=== PATIENT | female | born 1995 | race Caucasian/White ===

== ENCOUNTER 2019-08-30 19:16 | Emergency (ER) | payer OTHER, SELFPAY ==
--- NOTE | ~2019-08-30 | CT_ITS ---
EXAMINATION: CT abdomen pelvis w con EXAM DATE: 08/30/2019 23:10 INDICATION: Upper abdominal pain and vomiting. TECHNIQUE: Spiral CT of the abdomen and pelvis was performed following intravenous injection of 100 m L Omnipaque 350. Axial, coronal and sagittal images were reviewed. The dose-length product (DLP) fo r this examination was 531.42 mGy-cm. The exposure was tailored according to patient size (auto mA e xposure control), and iterative reconstruction (ASIR) was used as additional dose reduction technique . There is no prior study for comparison. FINDINGS: The liver, spleen, adrenal glands and pancreas are unremarkable. There are cholecystectomy clips. Portal and splenic veins are patent. Kidneys enhance symmetrically. There is no hydronephr osis. The uterus and ovaries are unremarkable, no adnexal mass. The bladder is unremarkable. Ther e is no retroperitoneal or pelvic lymphadenopathy. Possible identification of an unremarkable appendix. No pericecal inflammation. The stomach and smal l bowel are unremarkable. There is expected amount of colonic stool. No free intraperitoneal gas. The heart is normal in size. There are no pericardial or pleural effusions. The lung bases are un remarkable. There are no osteoblastic or osteolytic lesions identified. IMPRESSION: 1. No acute intra-abdominal findings. Reviewed, dictated and finalized at location A.
[2019-08-30 19:24] VITALS: BP 110/73; PULSE 84; RESP 18; TEMP 36.6; O2SAT 99
--- NOTE | 2019-08-30 20:00 | PC.NURSE ---
This nurse walked into room 3 to start an IV and draw labs to have ready for when Dr. Norris ordered them and witnessed pt sticking her finger down her throat to make herself vomit. There was yellow vomit on the floor, on the patient and on the chair beside the patient. This nurse cleaned floor prior to starting IV for patient.
--- NOTE | 2019-08-30 20:10 | PC.NURSE ---
Pt given urine cup and wipe and instructed on how to obtain a urine sample. Pt stated she would try to give one and ambulatory to washroom.
--- NOTE | 2019-08-30 20:20 | PC.NURSE ---
Pt ambulatory to washroom, unable to urinate at this time
[2019-08-30] MEDS: ONDANSETRON INJ 4 MG/2 ML VIAL 8 MG IV PUSH (21:14)
[2019-08-30] MEDS: LACTATED RINGERS 1,000 ML 999 ML IV CONT (21:14)
--- NOTE | 2019-08-30 21:15 | PC.NURSE ---
Pt ambulatory to the washroom, unable to urinate at this time
--- NOTE | 2019-08-30 21:16 | ED.NAVMDI ---
HPI - Nausea/Vomiting/Diarrhea General Chief complaint: Nausea/Vomiting/Diarrhea Stated complaint: allergic to weed Time Seen by Provider: 08/30/19 20:29 Source: patient Mode of arrival: ambulatory Limitations: no limitations History of Present Illness HPI Narrative: This patient is a 24 year old female who presents with complaints of epigastric abdominal pain with nausea, vomiting and diarrhea. PAtient states she thinks her symptoms are due to cannabis related hyperemesis. She has been having continuous epigastric abdominal pain that is worse in the morning. She has had multiple episode of nonbloody emesis and diarrhea. She denies fever or chills. MD elicited complaint: nausea, vomiting, diarrhea and abdominal pain Onset (ago): day(s) (2) Related Data Allergies Allergy/AdvReac Type Severity Reaction Status Date / Time Penicillins Allergy Unknown Verified 06/19/16 10:11 Review of Systems Review of Systems: All systems reviewed & are unremarkable except as noted in HPI and below Constitutional: Constitutional: Denies chills, Denies fever(s) and Reports weakness Respiratory: Respiratory: Denies cough and Denies dyspnea Gastrointestinal: Gastrointestinal: Reports abdominal pain, Reports diarrhea, Reports nausea and Reports vomiting Neurologic: Reports dizziness PMFSH Past Medical History Medical History (Updated 08/31/19 @ 06:24 by Danielle Norris MD) Elevated liver enzymes Family History Family History (Updated 06/19/16 @ 10:13 by DOCTOR UNKNOWN) Father Family history of irritable bowel syndrome Other Carcinoma of colon Diabetes mellitus Social History Social History Smoking status: Never smoker Second hand tobacco smoke exposure: No Alcohol intake: never Exam Const: General: alert Orientation/consciousness: patient oriented x3 Other: patient actively vomiting Eyes: Pupils: Equal, round and reactive pupils present EOM: EOMs intact bilaterally Resp: Effort & Inspection: normal respiratory effort and no retractions Auscultation: clear to auscultation bilaterally Cardio: Rate: regular rate Rhythm: regular rhythm Heart sounds: no murmurs GI: GI Palp: Yes Soft to palpation, Yes Tenderness to palpation present (GI) (epigastric), No Guarding due to palpation present (GI) and No Rigid due to palpation Skin: General skin exam: normal color Rashes: no rashes Psych: Mental Status: mental status grossly normal Affect: normal affect Course Reevaluation(s) Reevaluation #1: Nursing staff states patient initially told them she felt better. I discussed with nurse to PO challenge patient . Patient left AMA Date: 08/30/19 Time: 23:30 Vital Signs Vital signs: Vital Signs Temperature 97.9 F 08/30/19 19:24 Pulse Rate 84 08/30/19 19:24 Respiratory Rate 18 08/30/19 19:24 Blood Pressure 110/73 08/30/19 19:24 Pulse Oximetry 99 08/30/19 19:24 Temperature 97.9 F 08/30/19 19:24 Pulse Rate 62 08/30/19 21:59 Respiratory Rate 18 08/30/19 19:24 Blood Pressure 117/80 08/30/19 21:59 Pulse Oximetry 99 08/30/19 19:24 MDM - Nausea/Vomiting/Diarrhea Lab Data Attestation: I reviewed the patient's lab results. Result diagrams: 08/30/19 21:12 08/30/19 21:12 Labs: Lab Results 08/30/19 08/30/19 08/30/19 Range/Units 21:12 21:12 23:17 WBC 12.5 H (4.5-10.0) K/mm3 RBC 4.94 (4.2-5.4) M/mm3 Hgb 14.2 (12.0-15.0) g/dL Hct 42.5 (37.0-47.0) % MCV 86.0 (80-100) fl MCH 28.7 (26-34) pg MCHC 33.4 (32-36) g/dl RDW 13.0 (11.5-14.5) % Plt Count 379 H (150-375) k/mm3 MPV 10.4 (7.4-10.4) fl Immature Gran % (Auto) 0.4 (0-0.5) % Neut % (Auto) 86.2 H (45.5-73.1) % Lymph % (Auto) 9.9 L (18.3-44.2) % Placer % (Auto) 3.0 (2.6-8.5) % Eos % (Auto) 0.1 (0-4.4) % Baso % (Auto) 0.4 (0.2-1.2) % Lymph # (Auto) 1.24 (0.9-3.2) K/mm3 Placer # (Auto) 0.4 (0.1-0
[2019-08-30 21:18] LABS: Basophils Absolute Auto 0.1 K/mm3 (0.0-0.1); Basophils Percent Auto 0.4 % (0.2-1.2); Eosinophils Percent Auto 0.1 % (0-4.4); Hematocrit 42.5 % (37.0-47.0); Hemoglobin 14.2 g/dL (12.0-15.0); Immature Granulocyte Absolute 0.05 K/mm3 (0.00-0.031); Immature Granulocyte Percent A 0.4 % (0-0.5); Lymphocytes Absolute Auto 1.24 K/mm3 (0.9-3.2); Lymphocytes Percent Auto 9.9 % (18.3-44.2); Mean Corpuscular HGB Conc 33.4 g/dl (32-36); Mean Corpuscular Hemoglobin 28.7 pg (26-34); Mean Platelet Volume 10.4 fl (7.4-10.4); Monocytes Absolute Auto 0.4 K/mm3 (0.1-0.6); Neutrophils Absolute Auto 10.8 K/mm3 (1.3-6.7); Neutrophils Percent Auto 86.2 % (45.5-73.1); Platelet Count Result 379 k/mm3 (150-375); Red Blood Count 4.94 M/mm3 (4.2-5.4); White Blood Count 12.5 K/mm3 (4.5-10.0)
[2019-08-30 21:29] LABS: Alanine Aminotransferase 15 U/L (4-35); Albumin Level 4.8 g/dL (3.5-5.1); Alkaline Phosphatase 102 U/L (38-126); Aspartate Amino Transferase 23 U/L (14-36); Bilirubin,Total 0.6 mg/dL (0.2-1.3); Blood Urea Nitrogen 16 mg/dL (7-17); Calcium 9.8 mg/dL (8.4-10.2); Carbon Dioxide 23 mmol/L (22-30); Chloride 103 mmol/L (98-107); Estimated CRCL calculation 90 ml/min; Estimated Glomerular Filt Rate > 60; Glucose 133 mg/dL (65-105); Lipase 31 U/L (23-300); Potassium 3.7 mmol/L (3.4-5.0); Sodium 137 mmol/L (137-145)
--- NOTE | 2019-08-30 21:42 | ECG_ITS ---
Measurements Intervals [place] Rate: 81 P: 56 DC: 127 QRS: 80 QRSD: 86 T: 44 QT: 388 QTc: 451 Interpretive Statements SINUS RHYTHM BORDERLINE ST-T WAVE ABNORMALITY- INFERIOR LEADS BORDERLINE ECG Electronically Signed On 08-31-2019 6:44:26 CDT by Bj Hines D.O.
--- NOTE | 2019-08-30 21:45 | PC.NURSE ---
Pt ambulatory to washroom, unable to provide urine sample at this time
[2019-08-30] MEDS: PROMETHAZINE HCL 25 MG/ML AMPUL 12.5 MG IV PUSH (21:53)
[2019-08-30] MEDS: SODIUM CHLORIDE 0.9% IV 50 ML 200 ML (21:54)
[2019-08-30 21:58] VITALS: BP 106/57; PULSE 70
[2019-08-30 21:59] VITALS: BP 108/76; BP 117/80; PULSE 62
--- NOTE | 2019-08-30 22:25 | PC.NURSE ---
Pt ambulatory to washroom, unable to urinate at this time. Used blood for test for CT scan
--- NOTE | 2019-08-30 23:20 | PC.NURSE ---
Pt returned from CT scan, ambulatory to bathroom to give urine sample. Sample obtained and sent to lab. Pt was then seen walking back into the room and taking a tongue depressor from the jar on the counter. When asked if she had, pt stated she did not take anything from the cabinet/countertop. Pt was requested to not go through the countertop/cabinets.
--- NOTE | 2019-08-30 23:30 | PC.NURSE ---
Pt [employer] consultant light requesting to leave. Consulted with Dr. Norris. Told pt that if she would wait a little longer, approx 30ish minutes, pt would have results of CT scan and possibly get a prescription for home. Pt stated she just wanted to go home, as her mother would be picking her up.
[2019-08-30 23:36] LABS: Add Urine Microscopic? YES; Appearance Urine Cloudy (Clear); Bilirubin Urine Negative (Negative); Blood Urine Negative (Negative); Color Urine Yellow (Yellow); Glucose Urine UA Negative (Negative); Ketones Urine 2+ mg/dL (Negative); Leukocyte Esterase Ur Negative LEU/UL (Negative); Mucus Urine Heavy /lpf; Nitrate Urine Negative (Negative); Protein Urine 1+ mg/dL (Negative); RBC Urine 0-2 /hpf (0-2); Squamous Epithelial Cell Urine Many /hpf (Few); Urobilinogen Urine Negative mg/dL (<2.0)
[2019-08-30 23:39] LABS: Specific Grav Ur 1.047 (1.001-1.035)
--- NOTE | 2019-08-30 23:40 | PC.NURSE ---
As this nurse was going into pt's room for her to sign AMA paper, pt was sticking tongue depressor down her throat to make herself throw up. Pt was advised that making herself vomit would make her feel worse that she would if she just let the feeling subside. Pt stated that she was fine and that she expected more medication and fluids for her vomiting. This nurse apologized for not meeting her expectations, however pt stated she just wanted to leave. Signature obtained on AMA form
== END 2019-08-30 23:41 | disposition left against medical advice (07) ==
PROVIDERS: Emergency Provider General Practice; PCP Registered Nurse
DX: E86.0 Dehydration (principal); R11.2 Nausea with vomiting, unspecified
CPT/HCPCS: 36415; 74177; 80053; 81001; 81025; 83690; 85025; 93005; 96361; 96374; 96375; 99284; J2405; J2550; J7120; Q9967

== ENCOUNTER 2020-08-10 11:57 | Emergency (ER) | payer OTHER, SELFPAY ==
--- NOTE | ~2020-08-10 | XR_ITS ---
EXAMINATION: XR foot RT min 3V DATE: 08/10/2020 12:35 INDICATION: Right great toe injury and pain. TECHNIQUE: 4 views of right foot were obtained. COMPARISON: None. FINDINGS: There is moderate hallux valgus. No fracture. There is mild osteoarthritis of first metatar sophalangeal joint. There are small enthesophytes at posterior and plantar aspects of calcaneal tuber osity. IMPRESSION: 1. Moderate hallux valgus. 2. Mild osteoarthritis of first metatarsophalangeal joint. Reviewed, dictated and finalized at location B.
[2020-08-10 12:19] VITALS: BP 111/57; PULSE 52; RESP 16; TEMP 37.2; O2SAT 99
--- NOTE | 2020-08-10 12:26 | ED.LOWEXIN ---
HPI - Extremity Injury (Lower) General Chief Complaint: Extremity Injury, Lower Stated Complaint: Rt foot pain Time Seen by Provider: 08/10/20 12:01 Source: patient Mode of arrival: ambulatory Limitations: no limitations History of Present Illness HPI Narrative: 25-year-old female presents to [facility] with complaints of pain to the dorsal aspect of her right foot near the base of her right great toe since last night. Patient reports that she dropped a bag of food on her foot and then twisted her right foot. Patient reports that she has had intermittent pain to her right foot for the past year after dropping a tire on her foot at work. Patient has been taking [id number] ibuprofen with minimal relief. Patient denies swelling, bruising, erythema, numbness or tingling MD complaint: foot injury Onset (ago): day(s) (1) Injury: Right: foot Type of Injury: other (twisting inury ) Place: home Exacerbating factors: weight bearing and movement Related Data Allergies Allergy/AdvReac Type Severity Reaction Status Date / Time amoxicillin Allergy Unknown Hives Verified 08/10/20 12:23 cephalexin Allergy Unknown Hives Verified 08/10/20 12:23 Penicillins Allergy Unknown Hives Verified 08/10/20 12:23 Review of Systems Constitutional: Constitutional: Denies chills, Denies fatigue, Denies fever(s) and Denies weakness Cardiovascular: Cardiovascular: Denies chest pain Respiratory: Respiratory: Denies chest congestion, Denies cough and Denies wheezing Gastrointestinal: Gastrointestinal: Denies abdominal pain, Denies diarrhea, Denies nausea and Denies vomiting Musculoskeletal: Musculoskeletal: Denies myalgias, Reports arthralgias, Denies joint swelling and Denies muscle cramps Comments: Right foot pain Integumentary/Breasts: Skin/Breast: Denies rash PMFSH Past Medical History Medical History Elevated liver enzymes Surgical History Surgical History Hx of cholecystectomy Status post biopsy of kidney Family History Family History Father Family history of irritable bowel syndrome Other Carcinoma of colon Diabetes mellitus Social History Social History (Updated 08/10/20 @ 12:28 by SCOTTIE Beasley Smoking status: Current some day smoker Second hand tobacco smoke exposure: No Alcohol intake: current Substance use: never Gender identity (if verbalized by the patient): Female Comments At time of signature, I agree with nursing past medical, surgical, social and family history. There is no relevant family history pertinent to the presenting complaint. Exam Const: General: no acute distress and alert Nutritional Appearance: well nourished Orientation/consciousness: patient oriented x3 Neck: Neck: normal visual inspection Resp: Effort & Inspection: normal respiratory effort, not labored and not tachypneic Auscultation: clear to auscultation bilaterally, no rales, no rhonchi and no wheezes Cardio: Rate: regular rate, not bradycardic and not tachycardic Rhythm: regular rhythm Heart sounds: no murmurs Skin: General skin exam: normal color Rashes: no rashes Wounds: no wounds Neuro: General: patient oriented x3 and moves all extremities Speech: normal speech Extrem: General: normal to inspection, no clubbing, cyanosis or edema and no pedal edema Other: Mild pain noted to dorsal aspect of right foot at base of right great toe upon palpation. There is no pain to the Achilles tendon upon palpation. There is no swelling, bruising, erythema or open wounds. Full range of motion is noted. Psych: Appearance: grossly normal Mental Status: mental status grossly normal Affect: normal affect Attitude: cooperative Thought content: Yes Normal thought content present Course Vital Signs Vital signs: Vital Signs Temperature 37.2 C 08/10/20 12
== END 2020-08-10 13:00 | disposition home or self-care (01) ==
PROVIDERS: Emergency Provider Nurse Practitioner Family; PCP Registered Nurse
DX: M79.671 Pain in right foot (principal); F17.200 Nicotine dependence, unspecified, uncomplicated
CPT/HCPCS: 73630; 99213; G0463

== ENCOUNTER 2022-02-19 16:52 | Emergency (ER) | payer OTHER, SELFPAY ==
--- NOTE | 2022-02-19 17:08 | ED.DENTAL ---
HPI - Dental/Oral General Chief complaint: Dental/Oral Stated complaint: Dental Pain Time Seen by Provider: 02/19/22 18:10 Source: patient Mode of arrival: ambulatory Limitations: no limitations History of Present Illness HPI Narrative: Ms. Garcia is a 26-year-old female patient presenting to clinic today with complaints dental pain x1 day. She reports She feels as though she may have a dental abscess to the right upper back molar she does have swelling and tenderness to this area she denies any fever or chills. She is currently . Related Data Allergies Allergy/AdvReac Type Severity Reaction Status Date / Time amoxicillin Allergy Unknown Hives Verified 02/19/22 18:18 cephalexin Allergy Unknown Hives Verified 02/19/22 18:18 Penicillins Allergy Unknown Hives Verified 02/19/22 18:18 Review of Systems Review of Systems: Pertinent positives per HPI. Patient denies any fever, chills, rash, headache, visual changes, dizziness, cough, runny nose, sore throat, shortness of breath, chest pain, palpitations, nausea, vomiting, diarrhea, constipation, abdominal pain, or any urinary issues. PMFSH Past Medical History Medical History Elevated liver enzymes Surgical History Surgical History Hx of cholecystectomy Status post biopsy of kidney Family History Family History Father Family history of irritable bowel syndrome Other Carcinoma of colon Diabetes mellitus Social History Social History Smoking status: Current some day smoker Second hand tobacco smoke exposure: No Alcohol intake: current Alcohol use details: socially Substance use: never Gender identity (if verbalized by the patient): Female Comments At the time of my signature, I reviewed and agree with the nursing past medical, surgical, social, and family history. There is no relevant family history pertinent to the patient complaint. Exam Narrative: General: Well-developed, well nourished, in no apparent distress Head: Normocephalic, atraumatic Eyes: Pupils equally round and reactive to light bilaterally, EOM intact, sclera and conjunctive clear, no discharge, lids normal Ears: TMs intact and clear, ear canals clear, no drainage, grossly hearing normal. Nose: Nares patent, no discharge, no inflammation, no sinus tenderness. Mouth: Oropharynx without lesions or masses, poor dentition, MMM. small abscess with tenderness to palpation and mild fluctuance to the right upper gum above the 2nd molar Neck: Supple, trachea midline, no enlargement of anterior or posterior cervical nodes, no thyroid masses or goiter palpable. Cardio: Regular rate and rhythm, s1 and s2 normal, no murmur appreciated. Resp: Clear to auscultation bilaterally anteriorly and posteriorly, no rhonchi, rales, wheezing or rubs Course Course Emergency Course: Portions of this record may have been created with voice recognition software. Level of Care: Express Care Visit Vital Signs Vital signs: Vital signs reviewed MDM - Dental/Oral MDM Narrative Medical decision making narrative: At the time of visit patient is resting comfortably on the exam table. I suspect patient may have a dental abscess. Prescription for clindamycin was sent to the pharmacy. Supportive measures were discussed with the patient she voiced understanding discharge instructions and agrees to treatment plan. Differential Diagnosis Differential diagnosis: Likely gingival abscess, dental caries, toothache and dental abscess Discharge Plan Discharge Clinical Impression: Dental abscess Patient Disposition: Home, Self-Care Condition: Stable Instructions: Antibiotic Form, Dental Abscess (ED) Additional Instructions: may take Tyle
[2022-02-19 17:48] VITALS: BP 122/90; PULSE 53; RESP 17; TEMP 36.8; O2SAT 100
== END 2022-02-19 18:15 | disposition home or self-care (01) ==
PROVIDERS: Emergency Provider Nurse Practitioner Family; PCP Registered Nurse
DX: K04.7 Periapical abscess without sinus (principal); F17.200 Nicotine dependence, unspecified, uncomplicated
CPT/HCPCS: 99213; G0463

== ENCOUNTER 2024-02-03 11:37 | Emergency (ER) | payer OTHER, SELFPAY ==
[2024-02-03 11:45] VITALS: BP 112/57; PULSE 89; RESP 18; TEMP 37.1; O2SAT 99
--- NOTE | 2024-02-03 11:57 | ED_ITS ---
HPI - URI/Sore Throat General Chief Complaint: Upper Respiratory Infection Stated Complaint: Sinus Time Seen by Provider: 02/03/24 11:57 Source: patient, RN notes reviewed and old records reviewed Mode of arrival: ambulatory Limitations: no limitations History of Present Illness HPI Narrative: Patient presents with 3 day history subjective fever, body aches, cough. She reports that she has had some chills and sweats, fatigues easily with activity. Cough worse at night. No history of asthma. Multiple sick contacts. She is in no distress, including respiratory distress at this time Related Data Home Medications Medication Instructions Recorded Confirmed norethindrone acetate 1 mg-ethinyl 1 tablet DIRECTED 02/03/24 02/03/24 estradiol 20 mcg tablet (Microgestin) Allergies Allergy/AdvReac Type Severity Reaction Status Date / Time amoxicillin Allergy Unknown Hives Verified 02/19/22 18:18 cephalexin Allergy Unknown Hives Verified 02/19/22 18:18 Penicillins Allergy Unknown Hives Verified 02/19/22 18:18 Review of Systems Review of Systems: All systems reviewed & are unremarkable except as noted in HPI and below Constitutional: Constitutional: Reports as per HPI, Reports no additional constitutional complaints, Reports fatigue, Reports fever(s), Reports lethargy and Reports night sweats ENT: Reports system reviewed and no additional complaints, except as documented Cardiovascular: Cardiovascular: Reports no additional cardiovascular complaints Respiratory: Respiratory: Reports no additional respiratory complaints, Reports chest congestion, Reports cough, Reports pain with cough and Reports dyspnea Gastrointestinal: Gastrointestinal: Reports no additional gastrointestinal complaints Musculoskeletal: Musculoskeletal: Reports myalgias PMFSH Past Medical History Medical History Elevated liver enzymes Surgical History Surgical History Hx of cholecystectomy Status post biopsy of kidney Family History Family History Father Family history of irritable bowel syndrome Other Carcinoma of colon Diabetes mellitus Social History Social History Smoking status: Current some day smoker Second hand tobacco smoke exposure: No Alcohol intake: current Alcohol use details: socially Substance use: never Gender identity (if verbalized by the patient): Female Comments At the time of my signature, I reviewed and agree with the nursing past medical, surgical, social, and family history. There is no relevant family history pertinent to the patient complaint. Exam Const: General: cooperative, no acute distress, alert and awake Orientation/consciousness: oriented to person, oriented to place and oriented to time HENMT: Head: normal to inspection Mouth: Yes moist mucous membranes Resp: Effort & Inspection: normal respiratory effort and able to speak in complete sentences Auscultation: clear to auscultation bilaterally, no crackles, no rales, no rhonchi and no wheezes Cardio: Palpation: normal PMI Rate: regular rate Rhythm: regular rhythm Heart sounds: S1 normal heart sound present and S2 normal heart sound present Neuro: General: oriented to person, oriented to place and oriented to time Cranial nerves: Yes CN's II-XII intact bilaterally Psych: Appearance: grossly normal Thought process: Normal thought process present Insight: Good insight present (Psych) Judgement: Good judgement present (Psych) Course Course Level of Care: Express Care Visit Vital Signs Vital signs: Vital Signs Temperature 98.8 F 02/03/24 11:45 Pulse Rate 89 02/03/24 11:45 Respiratory Rate 18 02/03/24 11:45 Blood Pressure 112/57 L 02/03/24 11:45 Pulse Oximetry 99 02/03/24 11:45 Oxygen Delivery Room Air 02/03/24 11:45 Temperature 98.8 F 02/03/24 11:45 Pulse Rate 89 02/03/24 11:45 Respiratory Rate 18 02/03/24 11:45 Blood Pressure 112/57 L 02/03/24 11:45 Pulse Oximetry 99 02/03/24 11:45 Oxygen Delivery Room Air 02/03/24 11:45 Reviewed MDM - URI/Sore Throat MDM Narrative Medical decision making narrative: Labs reviewed, negative flu and COVID. Labs were obtained per patient request. Reassuring physical exam, nontoxic appearing patient. Treat for bronchitis with steroids, bronchodilators. Discharge instructions reviewed with patient, as well as provided in writing per nursing staff. The instructions also include specific and strict return/GO TO THE ER as well as f/u information. All questions have been answered, and the patient deny any further questions with discharge and discharge plan. Some parts of this dictation were generated by voice recognition software and may contain typographical and/or grammatical inaccuracies. Differential Diagnosis Differential diagnosis: Likely upper respiratory infection, sinusitis, viral infection, bronchitis and influenza Medical Records Attestation: I reviewed the patient's medical records. Lab Data Attestation: I reviewed the patient's lab results. Discharge Plan Discharge Clinical Impression: Bronchitis Patient Disposition: Home, Self-Care Condition: Stable Instructions: Antibiotic Form, Acute Bronchitis (ED) Additional Instructions: Take medications as prescribed, follow with primary care provider. Emergency department for new or worse symptoms Patient Language: Armenian Prescriptions: New prednisone 50 mg tablet 50 mg PO DAILY Qty: 5 0RF albuterol sulfate [Ventolin HFA] 90 mcg/actuation HFA aerosol inhaler 2 puff inhalation QID PRN (Reason: shortness of breath or wheezing) Qty: 8.5 0RF No Action norethindrone ac-eth estradiol [Microgestin 04/19 ()] 1-20 mg-mcg tablet 1 tablet DIRECTED Follow-up/Referrals: Sydney,DERREK Rogel [Primary Care Provider] - 2 Weeks Stand Alone Forms: Work/School Release IP Time of Disposition: 12:18
[2024-02-03 12:14] LABS: EDCOVIDSCREEN Negative (Negative); EDINFLUASCREEN Negative (Negative); EDINFLUBSCREEN Negative (Negative)
== END 2024-02-03 12:25 | disposition home or self-care (01) ==
PROVIDERS: Emergency Provider Nurse Practitioner Family; PCP Registered Nurse
DX: J40 Bronchitis, not specified as acute or chronic (principal); Z20.822 Contact with and (suspected) exposure to COVID-19; F17.200 Nicotine dependence, unspecified, uncomplicated
CPT/HCPCS: 87426; 87804; 99213; G0463

== ENCOUNTER 2024-10-27 17:27 | Emergency (ER) | payer OTHER, SELFPAY ==
--- NOTE | 2024-10-27 17:35 | ED.GENADULT ---
HPI - General Adult General Chief complaint: Urogenital-Female Stated complaint: Urinary Irritation Source: patient Mode of arrival: ambulatory Limitations: no limitations History of Present Illness HPI narrative: Pt is a 29 y/o female presenting with c/o urinary sx. Sx reported include dysuria, hesitancy. Sx began yesterday. 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 No concern for STI/. No additional complaints. Related Data Home Medications ?Medication ?Instructions ?Recorded ?Confirmed ?Last Taken ?Type bupropion HCl 150 mg 24 hr tablet, mg PO 10/27/24 Unknown History extended release hydroxychloroquine 100 mg tablet mg PO 10/27/24 Unknown History Allergies Allergy/AdvReac Type Severity Reaction Status Date / Time amoxicillin Allergy Unknown Hives Verified 10/27/24 17:41 cephalexin Allergy Unknown Hives Verified 10/27/24 17:41 Penicillins Allergy Unknown Hives Verified 10/27/24 17:41 Review of Systems Review of Systems: CONSTITUTIONAL: Denies body aches, fever, chills, or sweats. EYES: Denies visual changes, redness, or discharge. ENT: Denies rhinorrhea, congestion, sore throat, or otalgia. CARDIOVASCULAR: Denies chest pain, palpitations, or edema. RESPIRATORY: Denies cough or dyspnea. GASTROINTESTINAL: Denies abdominal pain, nausea, vomiting, or diarrhea. GENITOURINARY: reports dysuria,urinary hesistancy SKIN: Denies rash, itching, or wounds. MUSCULOSKELETAL: Denies back pain, joint pain, or myalgia. NEUROLOGIC: Denies headache, numbness, tingling, or weakness. PSYCH: Denies depression or anxiety. All systems reviewed & are unremarkable except as noted in HPI and below PMFSH Past Medical History Medical History Elevated liver enzymes Surgical History Surgical History Hx of cholecystectomy Status post biopsy of kidney Family History Family History Father Family history of irritable bowel syndrome Other Carcinoma of colon Diabetes mellitus Social History Social History Smoking status: Current some day smoker Second hand tobacco smoke exposure: No Alcohol intake: current Alcohol use details: socially Substance use: never Gender identity (if verbalized by the patient): Female Exam Narrative: GENERAL: Well-appearing, well-nourished, and in no acute distress. HEAD: Normocephalic, atraumatic. EYES: EOMI. No redness or drainage. Conjunctivae normal. ENT: Mucous membranes pink and moist. NECK: Normal AROM. Supple. CHEST: No respiratory distress. HEART: normal rate ABDOMEN: Soft, nontender, nondistended, normal active bowel sounds. No CVAT SKIN: Warm, dry, no rash. Capillary refill normal. Normal skin turgor. NEURO: No focal deficits. Alert and oriented x3. Gait steady. PSYCH: Normal affect. No signs of depression or anxiety. Course Course Level of Care: Express Care Visit Vital Signs Vital signs: Vital Signs Temperature 98.7 F 10/27/24 17:38 Pulse Rate 88 10/27/24 17:38 Respiratory Rate 16 10/27/24 17:38 Blood Pressure 124/66 10/27/24 17:38 Pulse Oximetry 95 10/27/24 17:38 Oxygen Delivery Room Air 10/27/24 17:38 Temperature 98.7 F 10/27/24 17:38 Pulse Rate 88 10/27/24 17:38 Respiratory Rate 16 10/27/24 17:38 Blood Pressure 124/66 10/27/24 17:38 Pulse Oximetry 95 10/27/24 17:38 Oxygen Delivery Room Air 10/27/24 17:38 Medical Decision Making Vital Signs Vital Signs: Vital Signs Temperature 98.7 F 10/27/24 17:38 Pulse Rate 88 10/27/24 17:38 Respiratory Rate 16 10/27/24 17:38 Blood Pressure 124/66 10/27/24 17:38 Pulse Oximetry 95 10/27/24 17:38 Oxygen Delivery Room Air 10/27/24 17:38 Temperature 98.7 F 10/27/24 17:38 Pulse Rate 88 10/27/24 17:38 Respiratory Rate 16 10/27/24 17:38 Blood Pressure 124/66 10/27/24 17:38 Pulse Oximetry 95 10/27/24 17:38 Oxygen Delivery Room Air 10/27/24 17:38 Discharge Plan Discharge Clinical Impression: Dysuria Patient Disposition: Home Condition: Stable Instructions: Antibiotic Form, Dysuria (ED) Additional Instructions: Go straight to ER should your symptoms become worse or should any new symptoms develop Patient Language: [place] Prescriptions: New nitrofurantoin monohyd/m-cryst [Macrobid] 100 mg capsule 100 mg PO Q12H 5 Days Qty: 10 0RF Rx Instructions: must administer with a meal/food No Action bupropion HCl 150 mg tablet extended release 24 hr PO hydroxychloroquine 100 mg tablet PO Follow-up/Referrals: Ajit,Tanna Mcgovern MD [Primary Care Provider] - 10/28/24 Time of Disposition: 18:00
[2024-10-27 17:38] VITALS: BP 124/66; PULSE 88; RESP 16; TEMP 37.1; O2SAT 95
== END 2024-10-27 18:08 | disposition home or self-care (01) ==
PROVIDERS: Emergency Provider Registered Nurse; PCP Student in an Organized Health Care Education/Training Program
DX: R30.0 Dysuria (principal); F17.200 Nicotine dependence, unspecified, uncomplicated
CPT/HCPCS: 87086; 99213; G0463